=== PATIENT | female | born 1970 | race Caucasian/White ===

== ENCOUNTER 2017-10-02 13:56 | Emergency (ER) | payer OTHER ==
[~2017-10-02] VITALS: Wt 61.7 kg
[~2017-10-02 13:56] MED LIST: BENTYL20 MG PO; HYDROCODONE BIT1 T11 PO; MOTRIN600 MG PO; NORVASC10 MG PO; PERCOCET 325 MG1 TA2 PO; PRILOSEC20 MG PO; PRILOSEC40 M1 PO; PROTONIX40 MG PO; TRAMADOL HCL50 MG PO; TRIMOX500 MG PO; VICODIN 5/500 505 MG PO; ZOFRAN ODT4 MG SL
[2017-10-02 14:52] LABS: BASO # 0.1 10*3/uL (0.0-0.1); BASO % 1.3 % (0.0-1.0); EOS # 0.3 10*3/uL (0.0-0.4); HEMATOCRIT 44.8 % (37.0-47.0); HEMOGLOBIN 14.5 g/dl (12.0-16.0); LYMPH # 2.3 10*3/uL (1.3-4.4); LYMPH % 24.8 % (27.0-41.0); MEAN CELL VOLUME 95.9 fl (81.0-99.0); MEAN CORPUSCULAR HGB CONC 32.4 g/dl (33.0-37.0); MEAN PLATELET VOLUME 9.5 fl (9.6-12.3); MONO # 0.9 10*3/uL (0.1-1.0); MONO % 9.7 % (3.0-9.0); NEUT # 5.5 10*3/uL (2.3-7.9); NEUT % 60.9 % (47.0-73.0); PLATELET COUNT AUTOMATED 327 10*3/uL (130-400); RED BLOOD COUNT 4.67 10*6/uL (4.10-5.10); RED CELL DISTRI WIDTH 13.3 % (0-14.5); WHITE BLOOD COUNT 9.1 10*3/uL (4.8-10.8)
[2017-10-02 15:03] LABS: ACT PARTIAL THROMBO TIME 22.8 SECONDS (20.8-31.5); INTERNATIONAL NORM RATIO 0.9 (2.0-3.5)
[2017-10-02 15:08] LABS: ALBUMIN 3.9 gm/dl (3.1-4.5); ALKALINE PHOSPHATASE 79 U/L (45-117); BUN 12 mg/dl (7-24); CHLORIDE 105 mmol/L (98-107); CREATININE 0.58 mg/dL (0.55-1.02); LIPASE 251 U/L (73-393); POTASSIUM 3.9 mmol/L (3.5-5.1); SGOT/AST 13 IU/L (3-35); SGPT/ALT 27 U/L (12-78); SODIUM 139 mmol/L (136-145); TOTAL PROTEIN 7.6 gm/dL (6.4-8.2)
[2017-10-02 15:15] LABS: TROPONIN I < 0.015 ng/ml (<0.045)
[2017-10-02] MEDS ORDERED: IBUPROFEN600 MG PO (15:49)
[2017-10-02] MEDS ORDERED: AMOXICILLIN500 M2 PO (15:49)
== END 2017-10-02 15:53 | disposition home or self-care (01) ==
LOC: ED 13:56
PROVIDERS: Physician Assistant
DX: R09.1 Pleurisy (principal); K08.89 Other specified disorders of teeth and supporting structures; Z79.899 Other long term (current) drug therapy; Z98.51 Tubal ligation status

== ENCOUNTER 2018-01-17 20:14 | Inpatient (IN) | payer OTHER ==
[~2018-01-17] VITALS: Ht 152.4 cm; Wt 64.2 kg
--- NOTE | ~2018-01-17 | EKG ---
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
--- NOTE | ~2018-01-17 | WRIGHTHP ---
[place], [place] PATIENT HISTORY AND PHYSICAL EXAM NAME: [facility]EDO [facility] [id number] UNIT #: [id number] ROOM: 415 DOCTOR: DARIAN NGUYEN MD BIRTHDATE: [birth year] DOS: 01/17/2018 HISTORY OF PRESENT ILLNESS: This patient is 47-year-old. The patient is not known to me. The patient states that she was out drinking with her "girls." The patient came home and decided to watch some TV, laid down and started to experience some chest tightness, palpitations and left-sided neck and jaw pain. It scared her and so she decided to come into the Emergency Room. The patient states that she was out drinking and she must have snorted 2 lines of cocaine. The patient denies having any complaints after admission. This morning feels okay, does not have any chest pains. PAST MEDICAL HISTORY: Significant for: 1. Benign hypertension. 2. Moderate cigarette smoker. 3. Peptic ulcer disease with dyspepsia. 4. History of cocaine use. MEDICATIONS: She is currently on omeprazole, amlodipine and Motrin. SOCIAL HISTORY: Smokes about a pack of cigarettes a day. She did snort some cocaine yesterday, which the patient claims that she had not done before and thinks that she was too drunk and possibly did not know what she was doing. She is not , has 2 children, 30 and 18. PHYSICAL EXAMINATION: VITAL SIGNS: Graphic trend shows blood pressure 110/62, pulse of 72, respirations 18, temperature 97.8. LUNGS: Diminished breath sounds. No wheezes, rales or rhonchi heard. HEART: Regular. ABDOMEN: Soft. EXTREMITIES: Without any edema. LABORATORY DATA: Three sets of troponins have come back negative. Urine drug screen positive for cocaine. Lipid panel this morning, cholesterol 211, HDL 53, LDL 123, VLDL 35, triglycerides 177. Comprehensive, glucose 156, BUN 8, creatinine 0.77, sodium 134, potassium 3.6. ASSESSMENT AND PLAN: 1. 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 The patient does indeed have risk factors being a smoker and having hypertension, so echocardiogram has been ordered and the patient is scheduled for a stress test this morning with consultation from Dr. [place]. If that is normal, the patient should be able to go back home. Encourage not to use street drugs. 2. Benign hypertension, controlled. 3. Mixed hyperlipidemia. Low dose Zocor will be started. [place], [place] PATIENT HISTORY AND PHYSICAL EXAM NAME: JACOBO SAUCEDO UNIT #: [id number] ROOM: [facility] DOCTOR: DARIAN NGUYEN MD BIRTHDATE: [birth year] DARIAN NGUYEN MD CM:HISPHYS:PATIENT HISTORY AND PHYSICAL EXAMINATION 0815 1057 DARIAN NGUYEN MD 01/18/18 1055 interface
--- NOTE | ~2018-01-17 | CON ---
[place], [place] REPORT OF CONSULTATION NAME: JACOBO SAUCEDO UNIT #: [id number] ROOM: 415 DOCTOR: DAMIAN VIRK MD BIRTHDATE: [birth year] DOS: 01/18/2018 REASON FOR CONSULTATION: Chest pain. HISTORY OF PRESENT ILLNESS: The patient is a 47-year-old woman who states that she has never had a history of any heart problems. She was told she had a heart murmur in the past, but no pathology was ever found. She recently suffered through the of her sister. She and some other family members went out "drinking" on 01/15/2018. She also admits to snorting a couple lines of cocaine. She states that she did that as a young woman, but not recently until 01/15. 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 She became frightened and came to the Emergency Room. Her blood pressure was mildly elevated, but she had no acute EKG changes or elevation in troponin. A CAT scan of the head showed no acute intracranial findings and a chest x-ray was normal. LABORATORY STUDIES: Showed an elevated white count at 15,600, but the hemoglobin was normal at 14.8, sodium is 134, potassium 3.6, chloride 101, BUN 8, creatinine 0.77. A urine drug screen was positive for cocaine metabolites. She was hospitalized because of her complaints of chest discomfort. Since she has been in the hospital, she has had continued sensations of increased cardiac awareness and palpitations, but no significant arrhythmias. Serial cardiac troponin levels have been negative. PAST MEDICAL HISTORY: Includes: 1. Hypertension. 2. Peptic ulcer disease. 3. Hyperlipidemia. 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 FAMILY HISTORY: Positive for heart disease in both her parents. She had a sister of an aneurysm and another sister suddenly of unknown causes. REVIEW OF SYSTEMS: The patient denies diplopia. She has had some blurring of her vision. She has had a headache. She denies syncope, but she has felt somewhat lightheaded. She denies any focal weakness. She denies orthopnea or PND. She has had some fluttering in her chest and some chest discomfort. She denies nausea or vomiting. She denies any focal weakness. She denies fevers, chills, sweats or recent weight change. She denies hemoptysis or hematemesis. She denies heat or cold intolerance, but she has felt very tired. She denies any change in bowel or bladder habits and denies blood in her stools or urine. She denies any peripheral edema. The remainder of the review of systems is negative except as noted above. SOCIAL HISTORY: The patient is single. She has 2 grown children. She does smoke one half to 1 pack of cigarettes a day. She drinks on occasion. She states that she has not done any drugs in years until the day in question, [place], [place] REPORT OF CONSULTATION NAME: JACOBO SAUCEDO UNIT #: [id number] ROOM: [facility] DOCTOR: DAMIAN VIRK MD BIRTHDATE: [birth year] 01/15/2018. MEDICATIONS: Prior to admission, amlodipine 10 mg daily, cholecalciferol 1000 units daily, ibuprofen 800 mg p.r.n., levothyroxine 50 mcg daily, omeprazole 40 mg daily, simvastatin 5 mg at bedtime. ALLERGIES: The patient has no known drug allergies. PHYSICAL EXAMINATION: GENERAL: The patient is a well-nourished white female, awake, alert and oriented. VITAL SIGNS: Pulse is 75 and regular, blood pressure is 115/72. She is afebrile. She weighs 64.2 kg and has a body mass index of 27.6. HEENT: Normocephalic, atraumatic. Extraocular muscles are intact. Sclerae are clear. Pupils equal, round and react to light. The oral mucosa is moist. Tongue is midline. NECK: Supple. She has no jugular distention or hepatojugular reflux. Carotids are full. I heard no bruits. She had no neck or supraclavicular masses, no thyromegaly. RESPIRATORY: Respirations are unlabored. Her chest is clear to auscultation and percussion. She has no presacral edema or chest wall tenderness. CARDIOVASCULAR: Her heart had a regular rhythm. She had a fourth heart sound, but no third heart sound. She has a grade 1/6 systolic ejection murmur along the left sternal border, but no diastolic murmurs. The PMI is not displaced. She has no precordial heave, lift or thrill. ABDOMEN: Soft and normally active without masses, organomegaly or bruits. I could not reproduce her pain by palpation of her chest or her abdomen. EXTREMITIES: Showed no clubbing, cyanosis or edema. There were no palpable cords or Homans sign. Pedal pulses were easily palpated in the feet bilaterally. I reviewed her electrocardiogram, which showed sinus rhythm with right atrial enlargement and left atrial enlargement. She does have voltage criteria for left ventricular hypertrophy and secondary ST and T-wave changes. I reviewed her echocardiogram, which was done earlier today. It showed left ventricular hypertrophy with normal regional wall motion and systolic function. No significant abnormality of valve structure or function was seen. Laboratory studies were noted above. Specifically, troponin levels were normal. IMPRESSIONS: 1. Presentation with atypical chest pain. 2. Hypertensive heart disease with left ventricular hypertrophy by echocardiography and an abnormal looking EKG with biatrial enlargement. 3. Long-term and ongoing cigarette abuse. 4. History of cocaine use shortly prior to admission. PLAN: Thus far, the patient shows no signs of an acute cardiac injury. We will further her evaluation by doing an exercise myocardial perfusion study. At this [place], [place] REPORT OF CONSULTATION NAME: JACOBO SAUCEDO UNIT #: [id number] ROOM: 415 DOCTOR: DAMIAN VIRK MD BIRTHDATE: [birth year] point, it would appear that risk factor modification and avoidance of street drugs is probably her best course, but we will make further recommendations after her stress test has been done. I thank Dr. Hernandez for asking our advice regarding her care. DAMIAN VIRK MD CM:CONSTR:REPORT OF CONSULTATION 1219 01/18/18 1321 interface
[~2018-01-17 20:14] MED LIST changes: +AMOXICILLIN500 M2 PO; +IBUPROFEN600 MG PO
[2018-01-17 20:16] VITALS: BP 159/85
[2018-01-17 20:49] VITALS: BP 125/79
[2018-01-17 20:49] LABS: BASO # 0.1 10*3/uL (0.0-0.1); BASO % 0.9 % (0.0-1.0); EOS # 0.3 10*3/uL (0.0-0.4); EOS % 1.9 % (1.0-4.0); HEMATOCRIT 43.5 % (37.0-47.0); HEMOGLOBIN 14.8 g/dl (12.0-16.0); LYMPH # 2.5 10*3/uL (1.3-4.4); LYMPH % 15.9 % (27.0-41.0); MEAN CELL VOLUME 94.4 fl (81.0-99.0); MEAN CORPUSCULAR HGB 32.1 pg (27.0-31.0); MEAN PLATELET VOLUME 9.2 fl (9.6-12.3); MONO # 1.3 10*3/uL (0.1-1.0); MONO % 8.2 % (3.0-9.0); NEUT # 11.3 10*3/uL (2.3-7.9); NEUT % 72.6 % (47.0-73.0); PLATELET COUNT AUTOMATED 357 10*3/uL (130-400); RED BLOOD COUNT 4.61 10*6/uL (4.10-5.10); RED CELL DISTRI WIDTH 12.4 % (0-14.5); WHITE BLOOD COUNT 15.6 10*3/uL (4.8-10.8)
[2018-01-17 20:58] LABS: INTERNATIONAL NORM RATIO 0.9 (2.0-3.5)
[2018-01-17 21:07] LABS: ALBUMIN 3.8 gm/dl (3.1-4.5); ALKALINE PHOSPHATASE 93 U/L (45-117); BUN 8 mg/dl (7-24); CHLORIDE 101 mmol/L (98-107); CREATININE 0.77 mg/dL (0.55-1.02); POTASSIUM 3.6 mmol/L (3.5-5.1); SGOT/AST 27 IU/L (3-35); SGPT/ALT 29 U/L (12-78); SODIUM 134 mmol/L (136-145); TOTAL PROTEIN 7.7 gm/dL (6.4-8.2)
[2018-01-17 21:09] LABS: TROPONIN I < 0.015 ng/ml (<0.045)
[2018-01-17 21:14] VITALS: BP 134/72
[2018-01-17 21:40] LABS: URINE AMPHETAMINES < 1000 (1000ng/ml); URINE BARBITURATES < 200 (200ng/ml); URINE BENZODIAZEPINES < 200 (200ng/ml); URINE CANNABINOIDS (THC) < 50 (50ng/ml); URINE COCAINE > 300 (300ng/ml); URINE METHADONE < 300 (300ng/ml); URINE OPIATES < 300 (300ng/ml)
[2018-01-17 21:41] LABS: URINE PHENCYCLIDINE < 25 (25ng/ml)
[2018-01-17 21:53] LABS: BILIRUBIN NEGATIVE (NEGATIVE); BLOOD TRACE-LYSED (NEGATIVE); CLARITY CLEAR (CLEAR); COLOR YELLOW (YELLOW); GLUCOSE NEGATIVE (NEGATIVE); KETONE NEGATIVE (NEGATIVE); SPECIFIC GRAVITY 1.005 (1.005-1.030)
[2018-01-17 21:54] LABS: BACTERIA TRACE; EPITHELIAL CELLS 20-25; LEUKO ESTERASE NEGATIVE (NEGATIVE); NITRITE NEGATIVE (NEGATIVE); RBC 0-2 rbc/hpf (0-2); UROBILINOGEN 0.2 E.U./dl (0.2-1.0); WBC 0-2 wbc/hpf (0-5)
[2018-01-17 23:05] VITALS: BP 122/70
[2018-01-17] MEDS ORDERED: VITAMIN D31000 UNI1 PO (23:17)
[2018-01-17] MEDS ORDERED: LEVOTHYROXINE50 MCG PO (23:18)
[2018-01-17] MEDS ORDERED: IBU800 M1 PO (23:19)
[2018-01-18 03:34] VITALS: BP 110/62
[2018-01-18 06:23] LABS: CHOLESTEROL 211 mg/dL (<200); HDL CHOLESTEROL 53 mg/dl (40-60); LDL CHOLESTEROL 123 mg/dL (9-159); TRIGLYCERIDES 177 mg/dl (<150); VLDL CHOLESTEROL 35 mg/dL (6-40)
[2018-01-18 08:00] VITALS: BP 115/72
[2018-01-18] MEDS ORDERED: ZOCOR5 MG PO (08:14)
[2018-01-18 12:00] VITALS: BP 112/67
== END 2018-01-18 16:09 | disposition home or self-care (01) | DRG 313 ==
LOC: ED 20:14 → EDHOLD 22:24 → 4E 22:52
PROVIDERS: Emergency Medicine; Internal Medicine
PROC: 4A02XM4 Measurement of Cardiac Total Activity, External Approach (ICD-10-PCS; principal; 2018-01-18)
PROC: 3E033HZ Introduction of Radioactive Substance into Peripheral Vein, Percutaneous Approach (ICD-10-PCS; principal; 2018-01-18)
DX: R07.2 Precordial pain (principal); K21.9 Gastro-esophageal reflux disease without esophagitis; E78.2 Mixed hyperlipidemia; I11.9 Hypertensive heart disease without heart failure; F17.210 Nicotine dependence, cigarettes, uncomplicated; F14.90 Cocaine use, unspecified, uncomplicated; R51 Headache; Z98.51 Tubal ligation status; Z79.899 Other long term (current) drug therapy; Z87.11 Personal history of peptic ulcer disease; Z82.49 Family history of ischemic heart disease and other diseases of the circulatory system; Z84.89 Family history of other specified conditions

== ENCOUNTER 2019-03-02 16:09 | Emergency (ER) | payer OTHER ==
[~2019-03-02] VITALS: Ht 152.4 cm; Wt 53.1 kg
[~2019-03-02 16:09] MED LIST changes: +IBU800 M1 PO; +LEVOTHYROXINE50 MCG PO; +VITAMIN D31000 UNI1 PO; +ZOCOR5 MG PO
[2019-03-02] MEDS ORDERED: ANAPROX DS550 MG PO (17:21)
== END 2019-03-02 17:31 | disposition home or self-care (01) ==
LOC: ED 16:09
DX: G89.29 Other chronic pain (principal); M25.532 Pain in left wrist; Z79.899 Other long term (current) drug therapy; I10 Essential (primary) hypertension; K21.9 Gastro-esophageal reflux disease without esophagitis

== ENCOUNTER 2019-05-30 12:45 | Emergency (ER) | payer SELFPAY ==
[~2019-05-30] VITALS: Ht 152.4 cm; Wt 58.1 kg
[~2019-05-30 12:45] MED LIST changes: +ANAPROX DS550 MG PO
[2019-05-30 13:42] LABS: BASO # 0.1 10*3/uL (0.0-0.1); BASO % 1.1 % (0.0-1.0); EOS # 0.3 10*3/uL (0.0-0.4); EOS % 2.5 % (1.0-4.0); HEMATOCRIT 45.4 % (37.0-47.0); HEMOGLOBIN 14.6 g/dl (12.0-16.0); LYMPH # 1.9 10*3/uL (1.3-4.4); LYMPH % 18.3 % (27.0-41.0); MEAN CELL VOLUME 96.6 fl (81.0-99.0); MEAN CORPUSCULAR HGB 31.1 pg (27.0-31.0); MEAN CORPUSCULAR HGB CONC 32.2 g/dl (33.0-37.0); MEAN PLATELET VOLUME 9.4 fl (9.6-12.3); MONO # 0.8 10*3/uL (0.1-1.0); MONO % 7.7 % (3.0-9.0); NEUT # 7.2 10*3/uL (2.3-7.9); PLATELET COUNT AUTOMATED 377 10*3/uL (130-400); RED CELL DISTRI WIDTH 12.5 % (0-14.5); WHITE BLOOD COUNT 10.2 10*3/uL (4.8-10.8)
[2019-05-30 13:52] LABS: ACT PARTIAL THROMBO TIME 26.2 SECONDS (20.0-32.1); INTERNATIONAL NORM RATIO 0.9 (2.0-3.5)
[2019-05-30 14:01] LABS: ALBUMIN 3.7 gm/dl (3.1-4.5); ALKALINE PHOSPHATASE 83 U/L (45-117); BUN 15 mg/dl (7-24); CHLORIDE 106 mmol/L (98-107); CREATININE 0.74 mg/dL (0.55-1.02); POTASSIUM 3.5 mmol/L (3.5-5.1); SGOT/AST 11 IU/L (3-35); SGPT/ALT 22 U/L (12-78); SODIUM 140 mmol/L (136-145); TOTAL PROTEIN 7.1 gm/dL (6.4-8.2)
[2019-05-30 14:11] LABS: TROPONIN I < 0.015 ng/ml (<0.045)
[2019-05-30] MEDS ORDERED: PREDNISONE50 MG PO (15:38)
== END 2019-05-30 15:47 | disposition home or self-care (01) ==
LOC: ED 12:45
PROVIDERS: Emergency Medicine
DX: S46.812A Strain of other muscles, fascia and tendons at shoulder and upper arm level, left arm, initial encounter (principal); K21.9 Gastro-esophageal reflux disease without esophagitis; I10 Essential (primary) hypertension; F17.200 Nicotine dependence, unspecified, uncomplicated; Z79.899 Other long term (current) drug therapy; X58.XXXA Exposure to other specified factors, initial encounter; Y92.89 Other specified places as the place of occurrence of the external cause; Y93.89 Activity, other specified; Y99.8 Other external cause status

== ENCOUNTER 2020-02-12 17:14 | Emergency (ER) | payer OTHER ==
[~2020-02-12] VITALS: Ht 152.4 cm; Wt 59.0 kg
[~2020-02-12 17:14] MED LIST changes: +PREDNISONE50 MG PO
[2020-02-12] MEDS ORDERED: IBU800 MG PO (17:54)
[2020-02-12] MEDS ORDERED: CEPHALEXIN500 M1 PO (17:54)
[2020-02-12] MEDS ORDERED: SEPTDS PO (17:54)
== END 2020-02-12 19:40 | disposition home or self-care (01) ==
LOC: ED 17:14
DX: S09.93XA Unspecified injury of face, initial encounter (principal); F17.210 Nicotine dependence, cigarettes, uncomplicated; Z79.899 Other long term (current) drug therapy; X58.XXXA Exposure to other specified factors, initial encounter; Y93.89 Activity, other specified; Y92.89 Other specified places as the place of occurrence of the external cause; Y99.8 Other external cause status

== ENCOUNTER → 2020-03-12 | Outpatient (CLI) | payer OTHER ==
[~2020-03-12] MED LIST changes: +CEPHALEXIN500 M1 PO; +IBU800 MG PO; +SEPTDS PO
== END | disposition home or self-care (01) ==
LOC: COVID19 15:01
PROVIDERS: ATTEND Internal Medicine
DX: Z20.828 Contact with and (suspected) exposure to other viral communicable diseases (principal)

== ENCOUNTER 2022-11-07 09:06 | Emergency (ER) | payer OTHER ==
[~2022-11-07] VITALS: Ht 152.4 cm; Wt 59.0 kg
[~2022-11-07 09:06] MED LIST changes: +TRAZODONE50 MG PO
[2022-11-07 09:41] LABS: BASO # 0.1 10*3/uL (0.0-0.1); EOS # 0.3 10*3/uL (0.0-0.4); EOS % 3.2 % (1.0-4.0); HEMATOCRIT 44.4 % (37.0-47.0); LYMPH # 2.4 10*3/uL (1.3-4.4); LYMPH % 24.6 % (27.0-41.0); MEAN CELL VOLUME 91.7 fl (81.0-99.0); MEAN CORPUSCULAR HGB 30.8 pg (27.0-31.0); MEAN CORPUSCULAR HGB CONC 33.6 g/dl (33.0-37.0); MEAN PLATELET VOLUME 9.2 fl (9.6-12.3); MONO # 0.9 10*3/uL (0.1-1.0); MONO % 9.5 % (3.0-9.0); NEUT # 6.1 10*3/uL (2.3-7.9); NEUT % 61.3 % (47.0-73.0); PLATELET COUNT AUTOMATED 348 10*3/uL (130-400); RED BLOOD COUNT 4.84 10*6/uL (4.10-5.10); RED CELL DISTRI WIDTH 12.2 % (0-14.5); WHITE BLOOD COUNT 9.9 10*3/uL (4.8-10.8)
[2022-11-07 10:01] LABS: ALKALINE PHOSPHATASE 89 U/L (46-116); BUN 10 mg/dl (9-23); CHLORIDE 102 mmol/L (98-107); SGPT/ALT 12 U/L (10-49); TOTAL PROTEIN 7.3 gm/dL (6.0-8.0)
[2022-11-07] MEDS ORDERED: REGLAN10 M1 PO (13:18)
== END 2022-11-07 14:25 | disposition home or self-care (01) ==
LOC: ED 09:06
PROVIDERS: Emergency Medicine
DX: R51.9 Headache, unspecified (principal); H53.8 Other visual disturbances; Z79.899 Other long term (current) drug therapy; Z98.51 Tubal ligation status

== ENCOUNTER 2023-03-17 14:03 | Emergency (ER) | payer OTHER ==
[~2023-03-17] VITALS: Wt 59.9 kg
[~2023-03-17 14:03] MED LIST changes: +REGLAN10 M1 PO
== END 2023-03-17 17:05 | disposition left against medical advice (07) ==
LOC: ED 14:03
DX: R22.1 Localized swelling, mass and lump, neck (principal); Z53.21 Procedure and treatment not carried out due to patient leaving prior to being seen by health care provider

== ENCOUNTER 2023-04-04 01:45 | Emergency (ER) | payer OTHER ==
[~2023-04-04] VITALS: Ht 152.4 cm; Wt 61.7 kg
[2023-04-04] MEDS ORDERED: CEPHALEXIN500 M1 PO (04:45)
== END 2023-04-04 04:53 | disposition home or self-care (01) ==
LOC: ED 01:45
DX: S91.332A Puncture wound without foreign body, left foot, initial encounter (principal); I10 Essential (primary) hypertension; K21.9 Gastro-esophageal reflux disease without esophagitis; Z98.51 Tubal ligation status; Z98.890 Other specified postprocedural states; F14.90 Cocaine use, unspecified, uncomplicated; F17.210 Nicotine dependence, cigarettes, uncomplicated; W22.8XXA Striking against or struck by other objects, initial encounter; Y93.89 Activity, other specified; Y92.009 Unspecified place in unspecified non-institutional (private) residence as the place of occurrence of the external cause; Y99.8 Other external cause status

== ENCOUNTER 2023-05-02 03:32 | Emergency (ER) | payer OTHER ==
[~2023-05-02] VITALS: Ht 152.4 cm; Wt 63.0 kg
[2023-05-02 04:27] LABS: BASO # 0.1 10*3/uL (0.0-0.1); BASO % 0.9 % (0.0-1.0); EOS # 0.1 10*3/uL (0.0-0.4); EOS % 1.1 % (1.0-4.0); HEMATOCRIT 49.1 % (37.0-47.0); LYMPH # 1.9 10*3/uL (1.3-4.4); LYMPH % 17.3 % (27.0-41.0); MEAN CELL VOLUME 93.5 fl (81.0-99.0); MEAN CORPUSCULAR HGB 30.1 pg (27.0-31.0); MEAN CORPUSCULAR HGB CONC 32.2 g/dl (33.0-37.0); MEAN PLATELET VOLUME 9.2 fl (9.6-12.3); MONO % 8.8 % (3.0-9.0); NEUT # 7.9 10*3/uL (2.3-7.9); NEUT % 71.4 % (47.0-73.0); PLATELET COUNT AUTOMATED 376 10*3/uL (130-400); RED BLOOD COUNT 5.25 10*6/uL (4.10-5.10); WHITE BLOOD COUNT 11.1 10*3/uL (4.8-10.8)
[2023-05-02 04:49] LABS: ALKALINE PHOSPHATASE 95 U/L (46-116); BUN 9 mg/dl (9-23); CHLORIDE 102 mmol/L (98-107); LIPASE 36 U/L (12-53); POTASSIUM 3.4 mmol/L (3.4-5.1); SGPT/ALT 11 U/L (5-49); TOTAL PROTEIN 8.2 gm/dL (6.0-8.0)
[2023-05-02] MEDS ORDERED: NORVASC10 MG PO (06:12)
== END 2023-05-02 06:54 | disposition home or self-care (01) ==
LOC: ED 03:32
PROVIDERS: Internal Medicine
DX: R51.9 Headache, unspecified (principal); I10 Essential (primary) hypertension; F17.200 Nicotine dependence, unspecified, uncomplicated; Z98.51 Tubal ligation status

== ENCOUNTER 2023-08-10 10:47 | Emergency (ER) | payer OTHER ==
[~2023-08-10] VITALS: Ht 152.4 cm; Wt 62.6 kg
[2023-08-10] MEDS ORDERED: ASPIRIN, CHEWABLE 81 MG TAB PO ONE (11:10)
[2023-08-10 11:13] LABS: BASO # 0.1 10*3/uL (0.0-0.1); BASO % 0.8 % (0.0-1.0); EOS # 0.2 10*3/uL (0.0-0.4); EOS % 1.8 % (1.0-4.0); HEMATOCRIT 45.1 % (37.0-47.0); LYMPH # 2.5 10*3/uL (1.3-4.4); MEAN CELL VOLUME 94.4 fl (81.0-99.0); MEAN CORPUSCULAR HGB 29.9 pg (27.0-31.0); MEAN CORPUSCULAR HGB CONC 31.7 g/dl (33.0-37.0); MEAN PLATELET VOLUME 9.4 fl (9.6-12.3); MONO % 9.5 % (3.0-9.0); NEUT # 6.3 10*3/uL (2.3-7.9); NEUT % 62.5 % (47.0-73.0); PLATELET COUNT AUTOMATED 350 10*3/uL (130-400); RED BLOOD COUNT 4.78 10*6/uL (4.10-5.10); RED CELL DISTRI WIDTH 12.5 % (0-14.5); WHITE BLOOD COUNT 10.1 10*3/uL (4.8-10.8)
[2023-08-10 11:29] LABS: ACT PARTIAL THROMBO TIME 28.6 SECONDS (20.0-32.1)
[2023-08-10 11:36] LABS: ALKALINE PHOSPHATASE 86 U/L (46-116); BUN 16 mg/dl (9-23); CHLORIDE 105 mmol/L (98-107); POTASSIUM 3.6 mmol/L (3.4-5.1); SGPT/ALT 11 U/L (5-49); TOTAL PROTEIN 7.5 gm/dL (6.0-8.0)
[2023-08-10] MEDS ORDERED: MORPHINE Sulfate 2 MG/ML SYR IV ONE ×2 (11:50→13:35)
[2023-08-10] MEDS ORDERED: HEPARIN SODIUM 250 ML IV SCH (12:10)
== END 2023-08-10 14:43 | disposition short-term general hospital (02) ==
LOC: ED 10:47
PROVIDERS: Internal Medicine
DX: I21.4 Non-ST elevation (NSTEMI) myocardial infarction (principal); I10 Essential (primary) hypertension; R07.89 Other chest pain; K21.9 Gastro-esophageal reflux disease without esophagitis; Z98.51 Tubal ligation status; Z98.890 Other specified postprocedural states; F17.200 Nicotine dependence, unspecified, uncomplicated

== ENCOUNTER 2024-03-18 22:47 | Emergency (ER) | payer OTHER ==
[~2024-03-18] VITALS: Ht 152.4 cm; Wt 61.2 kg
[2024-03-18] MEDS ORDERED: VIBRAMYCIN100 MG PO (23:05)
[2024-03-18] MEDS ORDERED: Doxycycline Hyclate 100 MG CAP PO ONE (23:10)
== END 2024-03-18 23:10 | disposition home or self-care (01) ==
LOC: ED 22:47
DX: S80.262A Insect bite (nonvenomous), left knee, initial encounter (principal); L03.116 Cellulitis of left lower limb; I10 Essential (primary) hypertension; K21.9 Gastro-esophageal reflux disease without esophagitis; Z98.890 Other specified postprocedural states; W57.XXXA Bitten or stung by nonvenomous insect and other nonvenomous arthropods, initial encounter; Y93.89 Activity, other specified; Y92.89 Other specified places as the place of occurrence of the external cause; Y99.8 Other external cause status

== ENCOUNTER 2024-12-30 14:37 | Emergency (ER) | payer OTHER ==
[~2024-12-30] VITALS: Ht 152.4 cm; Wt 61.2 kg
[~2024-12-30 14:37] MED LIST changes: +VIBRAMYCIN100 MG PO
[2024-12-30] MEDS ORDERED: OFLOXACIN 10 ML10 M2 OT (14:53)
[2024-12-30] MEDS ORDERED: OFLOXACIN 0.3% 5 ML BOTTLE OT ONE (15:00)
== END 2024-12-30 15:21 | disposition home or self-care (01) ==
LOC: ED 14:37
DX: S00.411A Abrasion of right ear, initial encounter (principal); H72.91 Unspecified perforation of tympanic membrane, right ear; K21.9 Gastro-esophageal reflux disease without esophagitis; I10 Essential (primary) hypertension; W44.B1XA Plastic bead entering into or through a natural orifice, initial encounter; Y93.89 Activity, other specified; Y92.89 Other specified places as the place of occurrence of the external cause; Y99.8 Other external cause status

== ENCOUNTER 2025-02-09 16:25 | Observation (INO) | payer OTHER ==
[~2025-02-09] VITALS: Ht 152.4 cm; Wt 62.8 kg
[~2025-02-09 16:25] MED LIST changes: +OFLOXACIN 10 ML10 M2 OT
[2025-02-09 16:34] VITALS: BP 173/101
[2025-02-09] MEDS ORDERED: ASPIRIN, CHEWABLE 81 MG TAB PO ONE (17:00)
[2025-02-09 17:06] VITALS: BP 157/97
[2025-02-09 17:37] LABS: BASO # 0.1 10*3/uL (0.0-0.1); BASO % 1.0 % (0.0-1.0); EOS # 0.2 10*3/uL (0.0-0.4); EOS % 2.5 % (1.0-4.0); MEAN CELL VOLUME 95.5 fl (81.0-99.0); MEAN CORPUSCULAR HGB 30.1 pg (27.0-31.0); MEAN PLATELET VOLUME 9.5 fl (9.6-12.3); MONO # 1.0 10*3/uL (0.1-1.0); MONO % 10.5 % (3.0-9.0); NEUT # 5.5 10*3/uL (2.3-7.9); NEUT % 60.0 % (47.0-73.0); NUCLEATED RED BLOOD CELL 0.0 % (0.0-0.0); NUCLEATED RED BLOOD CELL 0.0 10*3/uL (0.0-0.0); PLATELET COUNT AUTOMATED 363 10*3/uL (130-400); RED CELL DISTRI WIDTH 12.3 % (0-14.5)
[2025-02-09 17:50] LABS: BUN 12 mg/dl (9-23)
[2025-02-09] MEDS ORDERED: Ondansetron Hydrochloride 4 MG/2 ML VIAL IV ONE (18:10)
[2025-02-09 18:19] VITALS: BP 150/86
[2025-02-09 21:30] VITALS: BP 134/77
[2025-02-09] MEDS ORDERED: HEPARIN SODIUM 5,000 UNIT/ML VIAL IV ONE (21:35)
[2025-02-09] MEDS ORDERED: HEPARIN SODIUM 250 ML IV SCH (21:35)
[2025-02-09 22:29] LABS: BILIRUBIN Negative (Negative); BLOOD Negative (Negative); CLARITY Clear (Clear); COLOR Yellow (Yellow); KETONE Negative (Negative); LEUKO ESTERASE 1+ (Negative); NITRITE Negative (Negative); PH 7.0 (4.5-8.0); SPECIFIC GRAVITY 1.020 (1.001-1.030); UROBILINOGEN 1.0 E.U./dl (0.0-1.0)
[2025-02-09 22:36] LABS: BACTERIA 1+; EPITHELIAL CELLS 21-30; URINE AMPHETAMINES Positive (1000ng/ml); URINE BARBITURATES Negative (200ng/ml); URINE BENZODIAZEPINES Negative (200ng/ml); URINE CANNABINOIDS (THC) Negative (50ng/ml); URINE COCAINE Negative (300ng/ml); URINE METHADONE Negative (300ng/ml); URINE OPIATES Negative (300ng/ml); URINE PHENCYCLIDINE Negative (25ng/ml)
[2025-02-09 23:00] VITALS: BP 124/74
[2025-02-10] MEDS ORDERED: NITROGLYCERIN 1 IN PACKET T SCH
[2025-02-10 08:00] VITALS: BP 140/79
[2025-02-10] MEDS ORDERED: ACETAMINOPHEN 500 MG TAB PO PRN (11:05)
[2025-02-10 12:00] VITALS: BP 109/81
[2025-02-10 16:00] VITALS: BP 114/56
[2025-02-10 20:00] VITALS: BP 102/67
[2025-02-11 06:12] LABS: BASO # 0.1 10*3/uL (0.0-0.1); BASO % 0.9 % (0.0-1.0); EOS # 0.4 10*3/uL (0.0-0.4); EOS % 3.1 % (1.0-4.0); MEAN CELL VOLUME 96.1 fl (81.0-99.0); MEAN CORPUSCULAR HGB 30.5 pg (27.0-31.0); MEAN PLATELET VOLUME 9.8 fl (9.6-12.3); MONO # 1.1 10*3/uL (0.1-1.0); MONO % 9.6 % (3.0-9.0); NEUT # 7.0 10*3/uL (2.3-7.9); NEUT % 62.2 % (47.0-73.0); NUCLEATED RED BLOOD CELL 0.0 % (0.0-0.0); NUCLEATED RED BLOOD CELL 0.0 10*3/uL (0.0-0.0); PLATELET COUNT AUTOMATED 369 10*3/uL (130-400); RED CELL DISTRI WIDTH 12.3 % (0-14.5)
[2025-02-11 08:00] VITALS: BP 170/86
[2025-02-11] MEDS ORDERED: ASPIRIN ADULT L81 M1 PO (08:12)
[2025-02-11] MEDS ORDERED: TOPROL XL50 M1 PO ×2 (08:12→08:23)
[2025-02-11] MEDS ORDERED: IMDUR SA30 MG PO (08:12)
[2025-02-11] MEDS ORDERED: LIPITOR20 MG PO (08:14)
[2025-02-11 08:28] LABS: LDL CHOLESTEROL 128 mg/dL (9-159)
== END 2025-02-11 09:37 | disposition home or self-care (01) ==
LOC: ED 16:25 → 5E 20:58 → EDHOLD 20:58 → 5E 22:14
PROVIDERS: Internal Medicine; Nurse Practitioner Family; ADMIT Internal Medicine; ATTEND Internal Medicine
DX: I21.4 Non-ST elevation (NSTEMI) myocardial infarction (principal); I51.7 Cardiomegaly; I10 Essential (primary) hypertension; F17.200 Nicotine dependence, unspecified, uncomplicated; F19.10 Other psychoactive substance abuse, uncomplicated; Z79.899 Other long term (current) drug therapy